=== PATIENT | female | born 1985 | race Two or more races ===

== ENCOUNTER → 2017-01-28 | Outpatient (REF) | payer OTHER ==
[~2017-01-28] MED LIST: ACET50TA PO; FOLI1TAB4 PO; IBUP80TA PO; PRE-TAB3 PO; RANITAB PO; TUMS500C PO; ZOFR8TAB PO
== END ==
LOC: M SMT 11:35
PROVIDERS: ATTEND Nurse Practitioner Women's Health
DX: N39.3 Stress incontinence (female) (male) (principal)